=== PATIENT | female | born 1950 | race Two or more races ===

== ENCOUNTER 2023-12-06 14:03 | Emergency (ER) | payer OTHER ==
[~2023-12-06] VITALS: Ht 154.9 cm; Wt 69.9 kg
== END 2023-12-06 18:53 | disposition home or self-care (01) ==
LOC: ER 14:04
DX: S89.82XA Other specified injuries of left lower leg, initial encounter (principal); W19.XXXA Unspecified fall, initial encounter; Y93.89 Activity, other specified; Y92.098 Other place in other non-institutional residence as the place of occurrence of the external cause; Y99.8 Other external cause status; R10.30 Lower abdominal pain, unspecified; Z88.6 Allergy status to analgesic agent
CPT/HCPCS: 73501; 73610; 96372; 99283; J2360